=== PATIENT | male | born 1960 | race Caucasian/White ===

== ENCOUNTER 2020-06-11 07:39 | Emergency (ER) | payer BC ==
[~2020-06-11] VITALS: Ht 190.5 cm; Wt 108.6 kg
--- NOTE | 2020-06-11 07:48 | PHYS DOC ---
Past History Smoking: Non-smoker Alcohol Use: None Drug Use: None Adult General HPI HPI Patient is a 59-year-old male complaining of left lower quadrant pain. Reports onset was approximately 1 week ago, states left-sided pain woke him up with sleep. Nothing known makes better, patient states p.o. intake is made episodes worse. Patient describes it as a focal cramping pain that often radiates through his left flank down into his left suprapubic region. Timing of symptoms has been inconsistent since onset, initially suffered at onset 1 week ago but had numerous days of being asymptomatic. States episode of left-sided pain represented yesterday evening while trying to sleep, he slept poorly overnight and as a result, he presented to our ER this morning for evaluation due to ongoing pain. Associated symptoms include generalized nausea and acute on chronic diarrhea. Patient denies fever, URI-like symptoms, COVID-19 contact, syncope or falls, chest pain, shortness of breath, history of abdominal surgeries, changes in bladder or bowel function, no motor or sensory function changes. He has no history of any abdominal surgeries Review of Systems Review of Systems Fourteen body systems of review of systems have been reviewed. See HPI for pertinent positives and negative responses, other bourgeois all other systems are negative, non-pertinent or non-contributory Physical Exam Physical Exam Constitutional: Well developed, well nourished, no acute distress, non-toxic appearance. Does appear uncomfortable HENT: Normocephalic, atraumatic, bilateral external ears normal, oropharynx moist, no oral exudates, nose normal. Eyes: PERRLA, EOMI, conjunctiva normal, no discharge. Neck: Normal range of motion, no tenderness, supple, no stridor. Cardiovascular: Heart rate regular, sinus rhythm, no murmurs rubs or gallops Lungs & Thorax: Bilateral breath sounds clear to auscultation Abdomen: Bowel sounds normal, soft, mild left lower quadrant and suprapubic tenderness with palpation, no masses, no pulsatile masses. Nonsurgical abdomen, no peritoneal signs Skin: Warm, dry, no erythema, no rash. Back: No tenderness, left CVA tenderness Extremities: No tenderness, no cyanosis, no clubbing, ROM intact, no edema. Neurologic: Alert and oriented X 3, grossly normal motor & sensory function, no focal deficits noted. Psychologic: Affect normal, judgement normal, mood normal. Current Patient Data Vital Signs Vital Signs Date Time Temp Pulse Resp B/P (MAP) Pulse Ox O2 Delivery O2 Flow Rate FiO2 06/11/20 07:51 97.5 75 16 139/86 (103) 95 Room Air Lab Results Laboratory Tests Test 06/11/20 07:55 06/11/20 08:03 Urine Collection Type Unknown Urine Color Yellow Urine Clarity Turbid Urine pH 5.5 Urine Specific [place] >=1.030 Urine Protein 100 mg/dl Urine Glucose (UA) Neg mg/dL Urine Ketones (Stick) Neg mg/dL Urine Blood Large Urine Nitrite Neg Urine Bilirubin Neg Urine Urobilinogen Dipstick 0.2 mg/dL Urine Leukocyte Esterase Neg Urine RBC 20-40 /HPF Urine WBC Occ /HPF Urine Squamous Epithelial Cells Few /LPF Urine Amorphous Sediment Present /HPF Urine Bacteria Few /HPF Urine Mucus Slight /LPF White Blood Count 13.1 x10^3/uL Red Blood Count 5.66 x10^6/uL Hemoglobin 16.2 g/dL Hematocrit 48.0 % Mean Corpuscular Volume 85 fL Mean Corpuscular Hemoglobin 29 pg Mean Corpuscular Hemoglobin Concent 34 g/dL Red Cell Distribution Width 14.0 % Platelet Count 302 x10^3/uL Neutrophils (%) (Auto) 87 % Lymphocytes (%) (Auto) 7 % Monocytes (%) (Auto) 5 % Eosinophils (%) (Auto) 0 % Basophils (%) (Auto) 1 % Neutrophils # (Auto) 11.4 x10^3uL Lymphocytes # (Auto) 1.0 x10^3/uL Monocytes # (Auto) 0.6 x10^3/uL Eosinophils # (Auto) 0.0 x10^3/uL Basophils # (Auto) 0.1 x10^3/uL Sodium Level 137 mmol/L Potassium Level 4.5 mmol/L Chloride Level 101 mmol/L Carbon Dioxide Level 23 mmol/L Anion Gap 13 Blood Urea Nitrogen 24 mg/dL Creatinine 1.3 mg/dL Estimated GFR (Cockcroft-Gault) 56.7 BUN/Creatinine Ratio 18 Glucose Level 154 mg/dL Calcium Level 9.5 mg/dL Total Bilirubin 0.5 mg/dL Aspartate Amino Transf (AST/SGOT) 16 U/L Alanine Aminotransferase (ALT/SGPT) 28 U/L Alkaline Phosphatase 101 U/L Troponin I Quantitative < 0.017 ng/mL Total Protein 7.5 g/dL Albumin 4.4 g/dL Albumin/Globulin Ratio 1.4 Lipase 78 U/L Current Medications Medications (Trade) Dose Ordered Sig/Pinky Route PRN Reason Start Time Stop Time Status Last Admin Dose Admin Sodium Chloride 1,000 ml @ 1,000 mls/hr Q1H IV 06/11/20 08:15 06/11/20 09:14 DC 06/11/20 08:32 Ketorolac Tromethamine (Toradol 15mg Vial) 15 mg 1X ONCE IVP 06/11/20 08:15 06/11/20 08:16 DC 06/11/20 08:32 Iohexol (Omnipaque 300 Mg/ml) 75 ml 1X ONCE IV 06/11/20 08:15 06/11/20 08:16 DC 06/11/20 08:22 EKG EKG EKG ordered and interpreted by myself at 0816 hrs. as sinus rhythm at 69 bpm, prolonged QRS at 130 otherwise unremarkable intervals, no axis deviation, right bundle branch block with T wave inversions noted in leads V1 otherwise no ischemic findings, no STEMI Radiology/Procedures Radiology/Procedures CT ABDOMEN+PELVIS W History: lt flank pain radiating to llq and lt suprapubic region / Spl. Instructions: / History: Comparison: None. Technique: After administration of intravenous contrast, helical CT of the abdomen and pelvis was performed from the lung bases through the ischial tuberosities. Coronal and sagittal reconstructions were obtained. 75 mL of Omn ipaque 300 were used. One or more of the following dose reduction techniques were utilized: Automated exposure control (AEC), Adjustment of mA and/or kV according to patient size, Use of iterative reconstruction technique such as ASiR, CT scan done according to ALARA and image gently/image wisely Abdomen Findings: The visualized lung bases are clear. Multiple hepatic cysts. gallbladder, pancreas, spleen, and bilateral adrenal glands are normal. Symmetric renal enhancement. Mild left hydroureteronephrosis with a 4 x 3 mm calculus in the mid to distal ureter. The visualized loops of small bowel are normal. The visualized loops of large bowel are normal. There is no evidence of bowel obstruction. Appendix is normal. There is no free fluid. There is no mesenteric or retroperitoneal adenopathy. The abdominal aorta is normal in caliber. Mild aortoiliac atherosclerotic disease. Pelvis Findings: Urinary bladder is decompressed. No pelvic free fluid. There is no pelvic or inguinal adenopathy. There is no acute bony abnormality. IMPRESSION: Mild left hydroureteronephrosis with a 4 x 3 mm calculus in the mid to distal ureter. Electronically signed by: Buddy Whipple MD (06/11/2020 9:42 AM) [id number] Heart Score HEART Score for Chest Pain: HEART Score for Chest Pain Response (Comments) Value History Slighlty/Non-Suspicious 0 ECG Nonspecific Repolarizatio 1 Age >45 - < 65 1 Risk Factors 1 or 2 Risk Factors 1 Troponin < Normal Limit 0 Total 3 Risk Factors: Risk Factors: DM, Current or recent (<one month) smoker, HTN, HLP, family history of CAD, obesity. Risk Scores: Risk Factors: DM, Current or recent (<one month) smoker, HTN, HLP, family history of CAD, obesity. Course & Med Decision Making Course & Med Decision Making Discussed with the patient all findings and diagnostic testing. I discussed most likely diagnosis of left-sided kidney stone. I stressed need for close outpatient follow-up to review today's ER visit. Strict return precautions were also discussed at length with good understanding by patient. Patient voiced understanding and agreement with the plan. Patient knows to come back for repeat evaluation if concerning signs or symptoms present prior to outpatient follow- up. Hemodynamically stable, ambulatory and well-appearing at time of disposition. Dragon Disclaimer Dragon Disclaimer This electronic medical record was generated, in whole or in part, using a voice recognition dictation system. Departure Departure: Impression: Primary Impression: Kidney stone on left side Disposition: 01 DC HOME SELF CARE/HOMELESS Condition: IMPROVED Patient Instructions: Kidney Stones Additional Instructions: You were seen for flank pain and bloody urine. You most likely have a kidney stone that will hopefully pass. We are writing you a prescription for pain medication and another medication which will help you pass the stone naturally. You should strain your urine to look for the stone. You will need to follow up with the urologists as soon as possible. You should return to the ED if you develop worsening pain, fever, continued bloody urine, lightheadedness, shortness of breath, chest pain, or any other new or concerning symptoms. Scripts Hydrocodone Bit/Acetaminophen (HYDROCODONE-APAP 7.5-325 ) 1 Each Tablet 1 TAB PO PRN Q6HRS PRN for PAIN, #7 TAB 0 Refills Prov: SASCHA GRADY DO 06/11/20 Tamsulosin Hcl (FLOMAX) 0.4 Mg Cap.er.24h 1 CAP PO DAILY for kidney stone, #30 CAP 11 Refills Prov: SASCHA GRADY DO 06/11/20 SASCHA GRADY DO Jun 11, 2020 07:47
[2020-06-11 07:51] VITALS: BP 139/86
[2020-06-11] MEDS ORDERED: IV NORMAL SALINE 1,000ML 1,000 ML IV SCH (08:15)
[2020-06-11] MEDS ORDERED: IOHEXOL 300 MG/ML 75 ML VIAL. IV ONE (08:15)
[2020-06-11] MEDS ORDERED: KETOROLAC 15 MG/ML VIAL. IVP ONE (08:15)
[2020-06-11 08:30] LABS: BASO # 0.1 x10^3/uL (0.0-0.2); BASO % 1 % (0-3); EOS % 0 % (0-3); HEMOGLOBIN 16.2 g/dL (13.0-17.5); LYMPH % 7 % (24-48); MEAN CORPUSCULAR HEMOGLOBIN 29 pg (25-35); MEAN CORPUSCULAR HGB CONC 34 g/dL (31-37); MEAN CORPUSCULAR VOLUME 85 fL (79-100); MONO # 0.6 x10^3/uL (0.0-1.1); MONO % 5 % (0-9); NEUT # 11.4 x10^3uL (1.8-7.7); NEUT % 87 % (31-73); PLATELET COUNT 302 x10^3/uL (140-400); RED BLOOD COUNT 5.66 x10^6/uL (4.30-5.70); WHITE BLOOD COUNT 13.1 x10^3/uL (4.0-11.0)
[2020-06-11 08:35] LABS: CALCIUM 9.5 mg/dL (8.5-10.1); CREATININE 1.3 mg/dL (0.7-1.3); GFR 56.7; POTASSIUM 4.5 mmol/L (3.5-5.1)
[2020-06-11 08:40] LABS: ALBUMIN 4.4 g/dL (3.4-5.0); ALBUMIN/GLOBULIN RATIO 1.4 (1.0-1.7); TOTAL BILIRUBIN 0.5 mg/dL (0.2-1.0); TOTAL PROTEIN 7.5 g/dL (6.4-8.2)
[2020-06-11 08:46] LABS: BACTERIA,URINE FEW /HPF (0-FEW); BILIRUBIN,URINE NEG (NEG); CLARITY,URINE TURBID; COLOR,URINE YELLOW; GLUCOSE,URINE NEG (NEG); NITRITE,URINE NEG (NEG); RBC,URINE 20-40 /HPF (0-2); UROBILINOGEN,URINE 0.2 mg/dL (0.2 mg/dL); WBC,URINE OCC /HPF (0-4)
[2020-06-11 08:47] LABS: AMORPHOUS SEDIMENT,UR PRESENT /HPF; SQUAMOUS EPITHELIAL CELL,UR FEW /LPF
--- NOTE | 2020-06-11 09:49 | RAD ---
CT ABDOMEN+PELVIS W History: lt flank pain radiating to llq and lt suprapubic region / Spl. Instructions: / History: Comparison: None. Technique: After administration of intravenous contrast, helical CT of the abdomen and pelvis was per formed from the lung bases through the ischial tuberosities. Coronal and sagittal reconstructions wer e obtained. 75 mL of Omnipaque 300 were used. One or more of the following dose reduction techniques were utilized: Automated exposure control (AEC), Adjustment of mA and/or kV according to patient size , Use of iterative reconstruction technique such as ASiR, CT scan done according to ALARA and image g ently/image wisely Abdomen Findings: The visualized lung bases are clear. Multiple hepatic cysts. gallbladder, pancreas, spleen, and bilateral adrenal glands are normal. Symmetric renal enhancement. Mild left hydroureteronephrosis with a 4 x 3 mm calculus in the mid to d istal ureter. The visualized loops of small bowel are normal. The visualized loops of large bowel are normal. There is no evidence of bowel obstruction. Appendix is normal. There is no free fluid. There is no mesenteric or retroperitoneal adenopathy. The abdominal aorta is normal in caliber. Mild aortoiliac atherosclerotic disease. Pelvis Findings: Urinary bladder is decompressed. No pelvic free fluid. There is no pelvic or inguinal adenopathy. There is no acute bony abnormality. IMPRESSION: Mild left hydroureteronephrosis with a 4 x 3 mm calculus in the mid to distal ureter. Electronically signed by: Buddy Whipple MD (06/11/2020 9:42 AM) [id number]
[2020-06-11] MEDS ORDERED: TAMS0.4C97 PO (10:17)
[2020-06-11] MEDS ORDERED: HYDR-2765 PO (10:17)
--- NOTE | 2020-06-11 13:09 | EKG ---
[address] [address] Test Date: 2020-06-11 Test Time: 08:08:49 Pat Name: ANGELLA WHITE Department: Room: Gender: M Cig[employer]cher: JAEL : 1960 Requested By: SASCHA GRADY Order Number: [id number] Reading MD: Measurements Intervals [place] Rate: 69 P: 52 RI: 136 QRS: 60 QRSD: 130 T: 36 QT: 426 QTc: 458 Interpretive Statements SINUS RHYTHM RIGHT BUNDLE BRANCH BLOCK ABNORMAL ECG RI6.02 No previous ECG available for comparison
== END 2020-06-11 10:37 | disposition home or self-care (01) ==
LOC: ER 07:39
DX: N13.2 Hydronephrosis with renal and ureteral calculous obstruction (principal); R10.32 Left lower quadrant pain; R11.0 Nausea; R19.7 Diarrhea, unspecified
CPT/HCPCS: 36415; 74177; 80053; 81001; 83690; 84484; 85025; 93005; 96361; 96374; 99285; J1885; J7030; Q9967